=== PATIENT | male | born 1955 | race Caucasian/White ===

== ENCOUNTER 2021-02-27 03:56 | Emergency (ER) | payer MEDICARE, OTHER ==
[~2021-02-27] VITALS: Ht 188 cm; Wt 90.0 kg
[2021-02-27 04:43] LABS: BASO # 0.1 x10^3/uL (0.0-0.2); BASO % 1 % (0-3); EOS # 0.6 x10^3/uL (0.0-0.7); EOS % 5 % (0-3); HEMATOCRIT 37.6 % (39.0-53.0); HEMOGLOBIN 11.8 g/dL (13.0-17.5); LYMPH % 32 % (24-48); MEAN CORPUSCULAR HEMOGLOBIN 31 pg (25-35); MEAN CORPUSCULAR HGB CONC 31 g/dL (31-37); MEAN CORPUSCULAR VOLUME 98 fL (79-100); MONO # 0.8 x10^3/uL (0.0-1.1); MONO % 6 % (0-9); NEUT # 7.2 x10^3uL (1.8-7.7); NEUT % 57 % (31-73); PLATELET COUNT 251 x10^3/uL (140-400); RED BLOOD COUNT 3.83 x10^6/uL (4.30-5.70); RED CELL DISTRIBUTION WIDTH 16.4 % (11.5-14.5); WHITE BLOOD COUNT 12.7 x10^3/uL (4.0-11.0)
[2021-02-27 04:45] LABS: CREATININE 1.7 mg/dL (0.7-1.3); GFR 40.7; POTASSIUM 3.8 mmol/L (3.5-5.1)
[2021-02-27 04:54] LABS: ALBUMIN 2.8 g/dL (3.4-5.0); ALBUMIN/GLOBULIN RATIO 0.8 (1.0-1.7); MAGNESIUM 2.4 mg/dL (1.8-2.4); TOTAL BILIRUBIN 0.3 mg/dL (0.2-1.0); TOTAL PROTEIN 6.2 g/dL (6.4-8.2)
[2021-02-27] MEDS ORDERED: DEXAMETHASONE SOD PHOS 10 MG/ML VIAL. IV ONE (05:15)
[2021-02-27] MEDS ORDERED: IV RINGERS SOLUTION,LACTATED 1,000 ML IV ONE (05:15)
[2021-02-27] MEDS ORDERED: ASPIRIN RECTAL 300 MG SUPP. PR ONE (05:15)
--- NOTE | 2021-02-27 05:17 | RAD ---
XR CHEST 1V Clinical Indication: Reason: SOB / Comparison: AP chest February 11, 2021. Findings: There is left chest dual-chamber ICD. The cardiomediastinal silhouette is normal. There is moderate r ight mid and basilar lung airspace disease. There are diffuse interstitial opacities, similar to prio r study. There is no pneumothorax. No pleural effusion is appreciated. No acute bone abnormality. IMPRESSION: 1. Moderate airspace disease right mid and lower lung may be pneumonia or atelectasis. 2. Diffuse interstitial opacities are similar to prior study. Considerations include interstitial ed christian or pneumonia. Electronically signed by: Kevin Tao MD (02/27/2021 5:14 AM) [facility]
--- NOTE | 2021-02-27 05:27 | PHYS DOC ---
Adult General Chief Complaint Chief Complaint: SHORTNESS OF BREATH HPI HPI Patient is a 65-year-old male with a past medical history significant for positive Covid test, and recent V. fib cardiac arrest discharged from [facility] 10 days ago who presents to the emergency department in respiratory distress. EMS was called to his place of residence and upon arrival patient was in acute respiratory distress saturating in the 70s and was placed on BiPAP. Review of Systems Review of Systems Review of systems otherwise unremarkable except noted in HPI Allergies Allergies Allergies Coded Allergies Type Severity Reaction Last Updated Verified No Known Drug Allergies 02/27/21 No Physical Exam Physical Exam Constitutional: Well developed, well nourished, in acute respiratory distress HENT: Normocephalic, atraumatic, Eyes: conjunctiva normal, no discharge. [] Neck: Normal range of motion, no tenderness, supple, no stridor. [] Cardiovascular: Sinus tachycardia Lungs & Thorax: Bilateral breath sounds with significant decreased air movement and global rhonchi, tachypneic, hypoxic on BiPAP Abdomen: soft, no tenderness, no masses, no pulsatile masses. [] Skin: Warm, dry, no erythema, no rash. [] Extremities: No tenderness, no cyanosis, no clubbing, ROM intact, no edema. [] Neurologic: Alert and oriented X 3, no focal deficits noted. [] Current Patient Data Vital Signs Vital Signs Date Time Temp Pulse Resp B/P (MAP) Pulse Ox O2 Delivery O2 Flow Rate FiO2 02/27/21 04:59 96 Ventilator Lab Results Laboratory Tests Test 02/27/21 04:10 02/27/21 04:27 Sodium Level 140 mmol/L (136-145) Potassium Level 3.8 mmol/L (3.5-5.1) Chloride Level 107 mmol/L (98-107) Carbon Dioxide Level 22 mmol/L (21-32) Anion Gap 11 (6-14) Blood Urea Nitrogen 13 mg/dL (8-26) Creatinine 1.7 mg/dL (0.7-1.3) H Estimated GFR (Cockcroft-Gault) 40.7 BUN/Creatinine Ratio 8 (6-20) Glucose Level 331 mg/dL (70-99) H Calcium Level 8.0 mg/dL (8.5-10.1) L Magnesium Level 2.4 mg/dL (1.8-2.4) Total Bilirubin 0.3 mg/dL (0.2-1.0) Aspartate Amino Transferase (AST) 22 U/L (15-37) Alanine Aminotransferase (ALT) 17 U/L (16-63) Alkaline Phosphatase 85 U/L (46-116) Troponin I Quantitative 0.069 ng/mL (0-0.055) H PT-Dwi-S-Type Natriuretic Peptide 08700 pg/mL (0-124) H Total Protein 6.2 g/dL (6.4-8.2) L Albumin 2.8 g/dL (3.4-5.0) L Albumin/Globulin Ratio 0.8 (1.0-1.7) L POC Venous pH 7.18 (7.32-7.42) L POC Venous pCO2 49 mmHg (41-51) POC Venous pO2 135 mmHg (20-40) H Venous Blood HCO3 19 mmol/L (24-28) L POC Venous O2 Saturation (Maria) 98 % POC FiO2 100 EKG EKG [] Radiology/Procedures Radiology/Procedures [] Heart Score C/O Chest Pain: N/A Risk Factors: Risk Factors: DM, Current or recent (<one month) smoker, HTN, HLP, family history of CAD, obesity. Risk Scores: Risk Factors: DM, Current or recent (<one month) smoker, HTN, HLP, family history of CAD, obesity. Course & Med Decision Making Course & Med Decision Making Patient is a 65-year-old male who presents to the emergency department via EMS in acute respiratory distress who was just discharged from [facility] 10 days ago after being Covid positive and going into V. fib cardiac arrest Vital signs notable for tachycardia, tachypnea, hypoxia, hypertension. Physical exam noted above. Patient placed on the monitor with IV access established x2. BiPAP placed with titrating settings to patient's comfort. Chest x-ray with significant bilateral multifocal opacities suggestive of edema versus infection with probable combination of both. Patient continued to decline from a respiratory standpoint on BiPAP becoming extremely fatigued and falling asleep. At that point it was determined that intubation was indicated. Patient intubated with a 7.5 ET tube successfully. EKG with multiple abnormalities but no STEMI. Noted above. Troponin mildly elevated. Started on IV fluid resuscitation. pH is 7.1, BNP elevated, creatinine elevated, lactate at 4.22. Blood cultures obtained. Started on broad-spectrum antibiotics. Urinary catheter placed. OG tube placed. Covid pending. Discussed patient with Dr. Lincoln at [facility] for admission to the ICU. [] Dragon Disclaimer Dragon Disclaimer This electronic medical record was generated, in whole or in part, using a voice recognition dictation system. Departure Departure: Impression: Primary Impression: Respiratory distress Additional Impressions: Hypoxia Elevated troponin Pneumonia Pulmonary edema Disposition: 02 [facility] Admitting Physician: Other Condition: STABLE Referrals: PCP,NO (PCP) Problem Qualifiers MARLENY STEPHENS MD Feb 27, 2021 05:26
--- NOTE | 2021-02-27 06:09 | RAD ---
XR CHEST 1V Clinical Indication: Reason: POST INTUBATION Comparison: AP chest, earlier same day. Findings: The lung bases are excluded. There is endotracheal tube, tip is just superior to the aortic arch appr oximately 4.4 cm superior to the maryjo. Left chest dual-chamber ICD. Cardiac silhouette is stable. R ight midlung and basilar airspace disease. Diffuse interstitial opacities. No obvious pneumothorax. B ones appear stable. IMPRESSION: 1. Endotracheal tube in appropriate position. 2. Bilateral pulmonary opacities are unchanged. Electronically signed by: Kevin Tao MD (02/27/2021 6:07 AM) [facility]
[2021-02-27] MEDS ORDERED: ETOMIDATE 40 MG/20 ML VIAL. ONE (06:30)
[2021-02-27] MEDS ORDERED: ROCURONIUM 50 MG/5 ML VIAL. ONE (06:30)
[2021-02-27] MEDS ORDERED: PROPOFOL 100 ML IV PRN (06:30)
--- NOTE | 2021-02-27 06:49 | EKG ---
[address] [address] Test Date: 2021-02-27 Test Time: 04:10:16 Pat Name: MJ PHAN Department: Room: Gender: M Bulk Delivery Driver: BILL : [id number] Requested By: MARLENY STEPHENS Order Number: [id number] Reading MD: Measurements Intervals [place] Rate: 116 P: -15 GA: 146 QRS: 6 QRSD: 146 T: 180 QT: 342 QTc: 475 Interpretive Statements SINUS TACHYCARDIA LEFT ATRIAL ABNORMALITY CONSIDER WPW, TYPE B LOW LIMB LEAD VOLTAGE ST & T ABNORMALITY, CONSIDER RECENT HIGH LATERAL MYOCARDIAL OR PERICARDIAL DAMAGE ABNORMAL ECG RI6.02 No previous ECG available for comparison
[2021-02-27 07:00] VITALS: BP 118/78
== END 2021-02-27 07:58 | disposition short-term general hospital (02) ==
LOC: ER 03:56
DX: J18.9 Pneumonia, unspecified organism (principal); R06.03 Acute respiratory distress; R09.02 Hypoxemia; R77.8 Other specified abnormalities of plasma proteins; J81.1 Chronic pulmonary edema; Z20.822 Contact with and (suspected) exposure to COVID-19
CPT/HCPCS: 31500; 36415; 51702; 71045; 80053; 82803; 83735; 83880; 84484; 85025; 87040; 87077; 87205; 87426; 93005; 94660; 96365; 96366; 96375; 99285; J1100; J1956; J2704; J7120; 94002